=== PATIENT | male | born 1950 | race Caucasian/White ===

== ENCOUNTER 2021-12-09 09:51 | Outpatient (CLI) | payer OTHER | END 2021-12-09 10:04 | disposition home or self-care (01) | LOC: EDBD 09:51 → RAD 09:51 | PROVIDERS: ATTEND Orthopaedic Surgery | DX: M25.552 Pain in left hip (principal); M25.561 Pain in right knee; M25.562 Pain in left knee ==

== ENCOUNTER 2021-12-23 09:30 | Outpatient (CLI) | payer OTHER | END 2021-12-23 10:00 | disposition home or self-care (01) | LOC: PPH VACUNA 09:30 | PROVIDERS: ATTEND Emergency Medicine Pediatric Emergency Medicine | DX: Z23 Encounter for immunization (principal) ==

== ENCOUNTER 2023-10-17 08:40 | Outpatient (CLI) | payer OTHER | END 2023-10-17 08:41 | disposition home or self-care (01) | LOC: NUCLEAR 08:40 | PROVIDERS: ATTEND Urology | DX: N40.0 Benign prostatic hyperplasia without lower urinary tract symptoms (principal) | CPT/HCPCS: 78315; A9503 ==

== ENCOUNTER 2023-10-29 07:35 | Outpatient (CLI) | payer OTHER | END 2023-10-29 07:38 | disposition home or self-care (01) | LOC: NUCLEAR 07:35 | PROVIDERS: ATTEND Urology | DX: R07.9 Chest pain, unspecified (principal) | CPT/HCPCS: 78452; 93017; A9500; J0153 ==